=== PATIENT | male | born 1965 | race Caucasian/White ===

== ENCOUNTER 2019-04-12 17:07 | Inpatient (IN) | payer OTHER, BC ==
[~2019-04-12] VITALS: Ht 167.6 cm; Wt 84.0 kg
[~2019-04-12 17:07] MED LIST changes: -ACET325 PO; -CEFU500T30 PO; -PRED FORTE5 ML BOTHEYES
--- NOTE | 2019-04-12 17:41 | NUR ---
ARRIVAL PT ARRIVED TO UNIT APPROX 1715 A DIRECT ADMIT FROM [facility]. ORIENTED PT TO ROOM, UNIT AND POLICIES. TOOK PT VITALS AND FOUND BLOOD PRESSURE TO BE SLIGHTLY LOW BUT MAP REMAINS IN 70'S. BEGAN NORMAL SALINE IMMEDITELY AT THIS TIME PER WRITTEN ORDERS FROM [facility] PHYSICIAN. ASSESSMENT COMPLETED. ADMISSION PROCESS COMPLETED. PT AT BEDSIDE. PT REPORTS JUST NOT FEELING GOOD OVERALL. PT DENIES DIZZINESS OR LIGHTHEADNESS. PT DENIES PAIN. BED IN LOW POSITION, CALL LIGHT IN REACH AND PT DENIES ANY NEEDS WILL CONTINUE TO MONITOR.
--- NOTE | 2019-04-12 19:23 | NUR ---
SHIFT SUMMARY PT PLEASANT AND COOPERATIVE. PT REMAINS A&OX4. AFTER COMPLETING BOLUS PT BLOOD PRESSURE INCREASD SLIGHTLY. CONTINUED MAINTANENCE FLUIDS PER EMAR ORDERS AND BEGAN VANCO PER ORDERS. RECHECKED BP APPROX. 30 MINUTE LATER AND SBP WAS UP TO 109. PT CONTINUED TO DENIES ANY DIZZINESS, LIGHTHEADNESS OR PAIN. PT REPORTS JUST NOT FEELING WELL. BED IN LOW POSITION, CALL LIGHT IN REACH AND PT DENIES ANY NEEDS AT THIS TIME. WILL CONTINUE TO MONITOR UNTIL HANDOFF TO NIGHTSHIFT RN.
--- NOTE | 2019-04-12 22:30 | NUR ---
PATIENT COMPLAINING OF CHILLS AND SHAKING. PATIENT TEMP CHECK TEMPORAL AND ORALLY. NO INCREASE IN TEMP. PATIENT GIVEN BLANKETS. DENIES ANY OTHER SYMPTOMS. PATIENT STATES IT JUST MADE HIME NERVOUS.
--- NOTE | 2019-04-13 00:14 | NUR ---
PATIENT STILL HAS SLIGHT TREMORS GIVEN WARM BLANKETS FOR CHILLS. PATIENT CONTINUES TO HAVE NORMAL TEMP. BP STABLE. DR. STOUT NOTIFIED OF THE LACTATE AT 2333 AND DID NOT WANT TO INCREASE FLUIDS OR CHANGE ORDERS. PATIENT HEART RATE TRENDING UP TO 110'S.
[2019-04-13 02:24] LABS: BASOPHILS ABSOLUTE AUTO 0.02 K/mm3 (0.00-0.23); BASOPHILS PERCENT AUTO 1 % (0-2); EOSINOPHILS ABSOLUTE AUTO 0.01 K/mm3 (0.00-0.68); EOSINOPHILS PERCENT AUTO 0 % (0-6); Hematocrit 27.9 % (37.0-53.0); Hemoglobin 9.3 g/dL (13.5-17.5); IMMATURE GRAN ABSOLUTE AUTO 0.01 K/mm3 (0.00-0.10); IMMATURE GRAN PERCENT AUTO 0 % (0-1); LYMPHOCYTES PERCENT AUTO 7 % (21-46); MONOCYTES ABSOLUTE AUTO 0.44 K/mm3 (0.16-1.47); MONOCYTES PERCENT AUTO 11 % (4-13); Mean Corpuscular HGB 30.6 pg (26.0-34.0); Mean Corpuscular HGB Conc 33.3 g/dL (31.5-36.5); Mean Corpuscular Volume 92 fL (80-100); Mean Platelet Volume 10.7 fL (9.1-12.4); NEUTROPHILS ABSOLUTE AUTO 3.39 K/mm3 (1.96-9.15); NEUTROPHILS PERCENT AUTO 81 % (41-73); Platelet Count 165 K/mm3 (150-400); RDW Coefficient Variation 14.2 % (11.7-14.2); RDW Standard Deviation 48.4 fL (35.1-46.3); Red Blood Cell Count 3.04 M/mm3 (4.30-5.90); White Blood Cell Count 4.17 K/mm3 (4.00-11.30)
[2019-04-13 02:41] LABS: Alanine Aminotransfer (ALT/SGP 114 U/L (12-78); Alk Phos 100 U/L (50-136); Anion Gap 8 mmol/L (6-16); Aspartate Aminotrans (AST/SGOT 41 U/L (12-37); Bilirubin, Total 0.5 mg/dL (0.1-1.0); Blood Urea Nitrogen 16 mg/dL (8-24); Bun/Creatinine Ratio 23.1 (12.0-20.0); CO2, Blood 22 mmol/L (21-32); Calcium, Blood 8.1 mg/dL (8.5-10.1); Chloride, Blood 109 mmol/L (98-108); Creatinine, Blood 0.69 mg/dL (0.60-1.20); Globulin, Blood 3.1 g/dL (2.2-4.0); Glomerular Filtration Rate >60 (60-); Glucose, Blood 94 mg/dL (70-99); Potassium, Blood 4.2 mmol/L (3.5-5.5); Sodium, Blood 139 mmol/L (136-145); Total Protein, Blood 6.1 g/dL (6.4-8.2)
--- NOTE | 2019-04-13 06:01 | NUR ---
PATIENT HAS BEEN RESTLESS AND UNCOMFORTABLE IN THE BED. GIVEN FAN AND WARM BLANKET AT REQUEST. PATIENT HAS NOT REPORTED ANY MORE CHILLS. PATIENT DENIES ANY PAIN. STAYED AT BEDSIDE. PATIENT SBP SOFT IN THE 90'S WITH ADQUATE MAP'S IN THE 70'S. CONTINUES TO GET FLUIDS.
--- NOTE | 2019-04-13 08:03 | NUR ---
ASSUMED CARE: REPORT RECEIVED FROM JO-ANN Torres RN. ASSUMED CARE OF THIS PT AT APPROX 0700. ON ASSESSMENT, THE PT IS A&O, PLEASANT & COOPERATIVE. HE DENIES PAIN/ DISCOMFORT THIS AM. BREAKFAST TRAY BEING HELD UNTIL ABD US COMPLETED, PT AWARE OF REASONING FOR THIS. WILL CONTINUE TO MONITOR & UPDATE NEEDED.
--- NOTE | 2019-04-13 12:14 | NUR ---
DR. ORELLANA: PROVIDER AT BEDSIDE TO SEE PT. TEST RESULTS HAVE BEEN DISCUSSED W/ HIM & IT IS DECIDED THAT HE SHOULD STAY FOR AT LEAST ONE MORE NIGHT OF OBSERVATION. HE IS TO BE MED NO TELE. TELE BOX HAS BEEN REMOVED.
--- NOTE | 2019-04-13 12:40 | NUR ---
TRANSFER TO MED FLOOR: REPORT HAS BEEN CALLED TO SHRAVAN Moran RN. PT HAS BEEN TAKEN TO RM 328 VIA WC, HIS IS PRESENT AT THAT TIME & ALL BELONGINGS HAVE BEEN TAKEN W/ PT.
--- NOTE | 2019-04-13 12:52 | NUR ---
PT TRANSFERED TO 328 PT TRANSFERED FOR PCU IN STABLE CONDITION & WITH VSS. PT ORIENTED TO UNIT & ROOM. CALL LIGHT IN REACH. NS STARTED AT 50ML/HR. PT DENIES NEED AT THIS TIME. WILL CONTINUE TO MONITOR.
--- NOTE | 2019-04-13 16:44 | NUR ---
SHIFT SUMMARY NO CHANGES IN ASSESSMENT AT THIS TIME. PT IND IN ROOM. TOLERATING 50 ML/HR NS. VSS. WILL CONTINUE TO MONITOR UNTIL TURNOVER IS COMPLETE.
[2019-04-14 05:32] LABS: Vancomycin, Trough 13.9 ug/mL (5.0-10.0)
--- NOTE | 2019-04-14 11:33 | NUR ---
Echocardiogram completed.
[2019-04-14 12:08] LABS: BASOPHILS ABSOLUTE AUTO 0.01 K/mm3 (0.00-0.23); BASOPHILS PERCENT AUTO 0 % (0-2); EOSINOPHILS ABSOLUTE AUTO 0.11 K/mm3 (0.00-0.68); EOSINOPHILS PERCENT AUTO 4 % (0-6); Hematocrit 29.6 % (37.0-53.0); Hemoglobin 9.9 g/dL (13.5-17.5); IMMATURE GRAN ABSOLUTE AUTO 0.01 K/mm3 (0.00-0.10); IMMATURE GRAN PERCENT AUTO 0 % (0-1); LYMPHOCYTES ABSOLUTE AUTO 0.68 K/mm3 (0.84-5.20); LYMPHOCYTES PERCENT AUTO 23 % (21-46); MONOCYTES ABSOLUTE AUTO 0.54 K/mm3 (0.16-1.47); MONOCYTES PERCENT AUTO 19 % (4-13); Mean Corpuscular HGB 30.3 pg (26.0-34.0); Mean Corpuscular HGB Conc 33.4 g/dL (31.5-36.5); Mean Corpuscular Volume 91 fL (80-100); Mean Platelet Volume 10.6 fL (9.1-12.4); NEUTROPHILS ABSOLUTE AUTO 1.56 K/mm3 (1.96-9.15); NEUTROPHILS PERCENT AUTO 54 % (41-73); Platelet Count 200 K/mm3 (150-400); RDW Coefficient Variation 13.6 % (11.7-14.2); RDW Standard Deviation 44.9 fL (35.1-46.3); Red Blood Cell Count 3.27 M/mm3 (4.30-5.90); White Blood Cell Count 2.91 K/mm3 (4.00-11.30)
[2019-04-14 12:56] LABS: Alanine Aminotransfer (ALT/SGP 77 U/L (12-78); Albumin, Blood 2.9 g/dL (3.4-5.0); Albumin/Globulin Ratio 0.9 (0.8-1.8); Alk Phos 94 U/L (50-136); Anion Gap 7 mmol/L (6-16); Aspartate Aminotrans (AST/SGOT 22 U/L (12-37); Bilirubin, Total 0.3 mg/dL (0.1-1.0); Blood Urea Nitrogen 11 mg/dL (8-24); Bun/Creatinine Ratio 18.7 (12.0-20.0); CO2, Blood 25 mmol/L (21-32); Calcium, Blood 8.7 mg/dL (8.5-10.1); Chloride, Blood 109 mmol/L (98-108); Creatinine, Blood 0.59 mg/dL (0.60-1.20); Globulin, Blood 3.4 g/dL (2.2-4.0); Glomerular Filtration Rate >60 (60-); Glucose, Blood 103 mg/dL (70-99); Potassium, Blood 3.9 mmol/L (3.5-5.5); Sodium, Blood 141 mmol/L (136-145); Total Protein, Blood 6.3 g/dL (6.4-8.2)
[2019-04-14] MEDS ORDERED: CEFU500T30 PO (15:07)
[2019-04-14] MEDS ORDERED: ACET325 PO (15:07)
[2019-04-14] MEDS ORDERED: PRED FORTE5 ML BOTHEYES (15:08)
--- NOTE | 2019-04-14 16:57 | NUR ---
PT DISCHARGED PT DISCHARGED AT 1632. PT IN STABLE CONDITION WITH VSS. PT & EDUCATED ON DC INSTRUCTIONS. DENIED NEED FOR FURTHER INSTRUCTION. PT WHEELED OUT BY AIDE & DRIVEN HOME BY .
== END 2019-04-14 16:33 | disposition home or self-care (01) | DRG 872 ==
LOC: PCU 17:07 → MEDS 04-13 12:44
PROVIDERS: Internal Medicine; ADMIT Family Medicine
DX: A41.9 Sepsis, unspecified organism (principal); K80.20 Calculus of gallbladder without cholecystitis without obstruction; I10 Essential (primary) hypertension; E78.5 Hyperlipidemia, unspecified; E11.9 Type 2 diabetes mellitus without complications; D64.9 Anemia, unspecified; Z98.84 Bariatric surgery status; E86.9 Volume depletion, unspecified; I95.9 Hypotension, unspecified
CPT/HCPCS: 36415; 70450; 71046; 76705; 80053; 80202; 82947; 83605; 85025; 93306; A9270; J0696; J1650; J3370; J7030; J7050

== ENCOUNTER → 2019-04-12 | Outpatient (CLI) | payer OTHER, BC ==
[~2019-04-12] MED LIST: ACET325 PO; ATOR10 PO; CEFU500T30 PO; Metformin HCl500 MG PO; OXYACE5T PO; PRED FORTE5 ML BOTHEYES; Prinivil10 MG PO
[2019-04-12 14:23] LABS: Source, Urine Clean Catch
[2019-04-12 14:24] LABS: Bacteria Not Seen /hpf; Red Blood Cells, Urine 0-2 /hpf (0-2); Squamous Epithelial Cells Few /hpf (Few)
[2019-04-12 14:35] LABS: Alanine Aminotransfer (ALT/SGP 175 U/L (12-78); Albumin, Blood 3.8 g/dL (3.4-5.0); Alk Phos 135 U/L (40-126); Anion Gap 14 mmol/L (6-16); Aspartate Aminotrans (AST/SGOT 72 U/L (12-37); Blood Urea Nitrogen 18 mg/dL (8-24); Bun/Creatinine Ratio 16.5 (12.0-20.0); CO2, Blood 23 mmol/L (21-32); Calcium, Blood 9.4 mg/dL (8.5-10.1); Chloride, Blood 100 mmol/L (98-108); Creatinine, Blood 1.09 mg/dL (0.60-1.20); Globulin, Blood 3.7 g/dL (2.2-4.0); Glomerular Filtration Rate >60 (60-); Glucose, Blood 140 mg/dL (70-99); Potassium, Blood 4.5 mmol/L (3.5-5.5); Sodium, Blood 137 mmol/L (136-145); Total Protein, Blood 7.5 g/dL (6.4-8.2)
[2019-04-12 14:42] LABS: Hematocrit 34.8 % (37.0-53.0); Hemoglobin 11.9 g/dL (13.5-17.5); Mean Corpuscular HGB 30.7 pg (26.0-34.0); Mean Corpuscular HGB Conc 34.2 g/dL (31.5-36.5); Mean Corpuscular Volume 90 fL (80-100); Mean Platelet Volume 10.7 fL (9.1-12.4); Platelet Count 216 K/mm3 (150-400); RDW Coefficient Variation 13.7 % (11.7-14.2); RDW Standard Deviation 44.7 fL (35.1-46.3); Red Blood Cell Count 3.87 M/mm3 (4.30-5.90); White Blood Cell Count 3.62 K/mm3 (4.00-11.30)
[2019-04-12 15:54] LABS: BAND PERCENT MAN 20 % (0-8); BASOPHILS PERCENT MAN 0 % (0-2); EOSINOPHILS PERCENT MAN 0 % (0-6); LYMPHOCYTES PERCENT MAN 3 % (21-46); MONOCYTES PERCENT MAN 3 % (4-13); SEG NEUTROPHILS PERCENT MAN 74 % (41-73); TOTAL CELLS COUNTED 100
[2019-04-14 04:06] LABS: HBSAG SCREEN Negative (Negative); HEP A AB, IGM Negative (Negative); HEP B CORE AB, IGM Negative (Negative); HEP C VIRUS AB <0.1 (0.0-0.9)
== END | disposition home or self-care (01) ==
LOC: LAB SHORT 14:19 → LAB EV 14:19
PROVIDERS: Physician Assistant
DX: A41.9 Sepsis, unspecified organism (principal); R50.9 Fever, unspecified
CPT/HCPCS: 80053; 80074; 81015; 83605; 85025; 87040; 87086

== ENCOUNTER → 2019-07-22 | Outpatient (CLI) | payer OTHER, BC ==
[~2019-07-22] MED LIST changes: +ACET325 PO; +CEFU500T30 PO; +PRED FORTE5 ML BOTHEYES
== END | disposition home or self-care (01) ==
LOC: LAB 19:29 → LAB SHORT 19:29
DX: T81.33XS Disruption of traumatic injury wound repair, sequela (principal)
CPT/HCPCS: 87070; 87075; 87077; 87147; 87186; 87205

== ENCOUNTER → 2019-08-11 | Outpatient (CLI) | payer OTHER, BC ==
[2019-08-12 13:41] LABS: Stool Occult Bld Immuno 1 Negative (NEGATIVE)
== END | disposition home or self-care (01) ==
LOC: OLS 10:15 → LAB SHORT 10:15
PROVIDERS: Internal Medicine Gastroenterology
DX: D64.9 Anemia, unspecified (principal)
CPT/HCPCS: G0328

== ENCOUNTER 2022-04-12 09:06 | Day surgery (SDC) | payer OTHER, BC ==
[~2022-04-12] VITALS: Ht 167.6 cm; Wt 89.0 kg
[2022-04-12] MEDS ORDERED: Vitamin C100 M1 (09:34)
[2022-04-12] MEDS ORDERED: ASPI81CH (09:34)
[2022-04-12] MEDS ORDERED: CENTRUM SILVER1 EAC2 (09:34)
[2022-04-12] MEDS ORDERED: VITAMIN B125000 MC1 (09:34)
[2022-04-12] MEDS ORDERED: IRON18 MG (09:34)
== END 2022-04-12 11:55 | disposition home or self-care (01) ==
LOC: ORSCSDS 09:06
PROVIDERS: Student in an Organized Health Care Education/Training Program
PROC: 0DBN8ZX Excision of Sigmoid Colon, Via Natural or Artificial Opening Endoscopic, Diagnostic (ICD-10-PCS; principal; 2022-04-12 10:45)
DX: Z12.11 Encounter for screening for malignant neoplasm of colon (principal); Z86.010 Personal history of colon polyps; Z80.0 Family history of malignant neoplasm of digestive organs; K63.5 Polyp of colon; K57.30 Diverticulosis of large intestine without perforation or abscess without bleeding; E11.9 Type 2 diabetes mellitus without complications; I10 Essential (primary) hypertension; E78.5 Hyperlipidemia, unspecified; Z79.84 Long term (current) use of oral hypoglycemic drugs; Z79.899 Other long term (current) drug therapy; Z79.82 Long term (current) use of aspirin; G47.33 Obstructive sleep apnea (adult) (pediatric); F17.210 Nicotine dependence, cigarettes, uncomplicated
CPT/HCPCS: 82947; 88305; J2704; J7120